=== PATIENT | female | born 1975 | race Hispanic/Latino ===

== ENCOUNTER 2017-03-04 00:55 | Emergency (ER) | payer BC, OTHER ==
[2017-03-04 01:31] LABS: #Basophils 0.1 thou/uL (0.0-0.2); #Eosinphils 0.1 thou/uL (0.0-0.7); #Lymphocytes 2.4 thou/uL (1.20-3.40); #Monocytes 0.5 thou/uL (0.11-0.59); #Neutrophils 3.9 thou/uL (1.40-6.50); %Basophils 0.8 % (0.0-1.0); %Eosinophils 2.1 % (0.0-10.0); %Lymphocytes 34.1 % (21.0-51.0); %Monocytes 6.4 % (0.0-10.0); %Neutrophils 56.6 % (42.0-75.0); Mean Corpuscular HGB CONC 32.3 g/dL (32.0-36.0); Mean Corpuscular Hemoglobin 31.4 pg (27.0-31.0); Mean Corpuscular Volume 97.2 fl (81.0-99.0); Mean Platelet Volume 8.9 fL (7.4-10.4); Platelet Count 214 thou/uL (130-400); RBC Distribution Width 11.5 % (11.5-14.5); Red Blood Cell (RBC) Count 4.14 mill/uL (4.20-5.40)
[2017-03-04 01:56] LABS: ALT (SGPT) 14 U/L (8-55); AST (SGOT) 17 U/L (5-34); Albumin 4.5 g/dL (3.5-5.0); Alkaline Phosphatase 110 U/L (40-150); Anion Gap 17 mmol/L (10-20); BUN (Urea Nitrogen) 13 mg/dL (7.0-18.7); Bilirubin, Total 0.4 mg/dL (0.2-1.2); Calc. Creatinine Clearance 0 mL/min (70-130); Calcium 9.7 mg/dL (7.8-10.44); Carbon Dioxide 22 mmol/L (22-29); Chloride 102 mmol/L (98-107); Estimated GFR-MDRD 88; Glucose 101 mg/dL (70-105); Potassium 4.2 mmol/L (3.5-5.1); Protein, Total 7.5 g/dL (6.0-8.3); Sodium 137 mmol/L (136-145)
[2017-03-04 01:57] LABS: CKMB 0.8 ng/mL (0-6.6); Troponin I Less than 0.010 ng/mL (< 0.028)
[2017-03-04 02:08] LABS: INR-International Normal Ratio 0.9; PTT 27.6 SEC (22.9-36.1); Prothrombin Time 12.7 SEC (12.0-14.7)
[2017-03-04] MEDS ORDERED: Sodium Chloride 0.9% 1,000 ML ONE (02:28)
--- NOTE | 2017-03-04 07:40 | CT ---
PRELIMINARY REPORT/[facility]/EMERGENCY AFTER HOURS PROCEDURE: EXAM: CT Head Without Intravenous Contrast CLINICAL HISTORY: 41 years old, female; Signs and symptoms; Numbness / parasthesia; Left; Patient HX: 41 year old gracie reyes presents with acute onset of pain in left jaw, followed by numbness in left face, arm and leg. Tr ied to get up to walk but felt lightheaded, unsteady. TECHNIQUE: Axial computed tomography images of the head/brain without intravenous contrast. This CT exam was pe rformed using one or more of the following dose reduction techniques: automated exposure control, ad justment of the mA and/or kV according to patient size, and/or use of iterative reconstruction techn ique. COMPARISON: No relevant prior studies available. FINDINGS: Brain: No acute stroke or bleed. Villatoro / white differentiation maintained. Mild preferential bilatera l anterior frontal lobe volume loss. Ventricles: No acute findings. No ventriculomegaly. Bones/joints: No acute findings. No acute fracture. Soft tissues: No acute findings. Sinuses: Unremarkable as visualized. No acute sinusitis. Mastoid air cells: Unremarkable as visualized. No mastoid effusion. IMPRESSION: No acute intracranial pathology. Mild preferential bilateral anterior frontal lobe volume loss. Thank you for allowing us to participate in the care of your patient. Dictated and Authenticated by: Arnol Alcantar MD 03/04/2017 1:43 AM Central Time ([place] \T\ [place]) FINAL REPORT CT BRAIN WITHOUT CONTRAST: Date: 03/04/17 FINDINGS/IMPRESSION: I agree with the findings and impression given in the preliminary report per [facility] physician. No evid ence of acute intracranial abnormality. POS: [facility]
--- NOTE | 2017-03-04 08:00 | RAD ---
SINGLE VIEW OF THE CHEST: Comparison: 05-08-11 History: Numbness. FINDINGS: Single view of the chest shows a normal sized cardiomediastinal silhouette. The patient appears to h ave a right breast implant. There is no evidence of consolidation, mass or pleural effusions. The Me diport has been removed. IMPRESSION: No evidence of acute cardiopulmonary disease. POS: [facility]
== END 2017-03-04 02:16 | disposition short-term general hospital (02) ==
LOC: NAV ERS 00:55
DX: R20.0 Anesthesia of skin (principal); I10 Essential (primary) hypertension; E03.9 Hypothyroidism, unspecified; K21.9 Gastro-esophageal reflux disease without esophagitis; Z79.899 Other long term (current) drug therapy
CPT/HCPCS: 36415; 36416; 70450; 71010; 80053; 82553; 84484; 85025; 85610; 85730; 93005; J7050

== ENCOUNTER 2017-04-16 15:27 | Emergency (ER) | payer BC, OTHER | END 2017-04-16 16:20 | disposition home or self-care (01) | LOC: NAV ERS 15:27 | DX: T78.40XA Allergy, unspecified, initial encounter (principal); E03.9 Hypothyroidism, unspecified; K21.9 Gastro-esophageal reflux disease without esophagitis; Z79.899 Other long term (current) drug therapy; Z85.3 Personal history of malignant neoplasm of breast; Z92.21 Personal history of antineoplastic chemotherapy | CPT/HCPCS: 99284 ==

== ENCOUNTER 2017-08-21 14:41 | Emergency (ER) | payer BC, OTHER ==
[2017-08-21] MEDS ORDERED: Ibuprofen 100 MG/5 ML UDCUP ONE (14:54)
[2017-08-21] MEDS ORDERED: Ondansetron ODT 4 MG TAB ONE (15:26)
[2017-08-21] MEDS ORDERED: Acetaminophen 500 MG TAB ONE (15:26)
== END 2017-08-21 15:37 | disposition home or self-care (01) ==
LOC: NAV ERS 14:41
DX: J10.1 Influenza due to other identified influenza virus with other respiratory manifestations (principal); E03.9 Hypothyroidism, unspecified; K21.9 Gastro-esophageal reflux disease without esophagitis; Z79.899 Other long term (current) drug therapy
CPT/HCPCS: 99283; Q0162